=== PATIENT | female | born 1985 | race Caucasian/White ===

== ENCOUNTER 2016-12-20 03:45 | Emergency (ER) | payer OTHER ==
[~2016-12-20] VITALS: Ht 167.6 cm; Wt 53.0 kg
[~2016-12-20 03:45] MED LIST: ACYC400T PO; HYDR2TAB2 PO; IBUP-1427 PO; SERT50TA PO; SULF800T23 PO; SYMIN160 INH; VNTHFA/IN INH
[2016-12-20 03:47] VITALS: TEMP 36.8; Ht 167.6 cm; Wt 53.0 kg
--- NOTE | 2016-12-20 04:17 | EMERGENCY ROOM VISIT NOTE ---
History Report prepared by Humza: Betsy Guevara Under the Supervision of: Dr. Maria Elena Cuello D.O. First contact with patient: 03:51 Chief Complaint: CHEST PAIN Stated Complaint: CHEST PAIN,HARD BREATHING History of Present Illness The patient is a 31 year old female who presents to the Emergency Room with complaints of persistent chest pain for the past 3 weeks. She reports she has seen [facility], [facility] and her PCP's office for her symptoms, but no known etiology has been found. She rates her pain as a 10/10 in severity. Palpation worsens her discomfort and nothing relieves her pain. Dilaudid and Valium have provided minimal relief. She denies any nausea or vomiting. She denies any alcohol or drug use. She denies any recent strain or injuries. Her last menstrual period was 4 years ago as she has undergone a total hysterectomy. The patient admits to some shortness of breath, but notes she is a current smoker. In the past 2 days, she has taken Tylenol and Relafen, with minor relief. 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 A total of 10 systems reviewed and were otherwise negative. Past Medical & Surgical Medical Problems: (1) Genital herpes Social History Smoking Status: Current Every Day Smoker Alcohol Use: occasionally Drug Use: none Marital Status: Housing Status: lives with family Occupation Status: unemployed Current/Historical Medications Scheduled Acyclovir (Acyclovir), 400 MG PO BID Estrogens, Conjugated (Premarin), 1.25 MG PO DAILY Mirtazapine (Remeron), 30 MG PO HS Nabumetone (Relafen), 500 MG PO BID Scheduled PRN Lorazepam (Ativan), 0.5 MG PO Q8 PRN for Anxiety Allergies Coded Allergies: Amoxicillin (Verified Allergy, Unknown, UNKNOWN, 12/20/16) Citalopram (Verified Allergy, Unknown, UNKNOWN, 12/20/16) Clavulanic Acid (Verified Allergy, Unknown, UNKNOWN, 12/20/16) Physical Exam Vital Signs Date Time Temp Pulse Resp B/P (MAP) Pulse Ox O2 Delivery O2 Flow Rate FiO2 12/20/16 06:00 54 16 91/60 99 Room Air 12/20/16 05:24 59 24 101/59 94 Room Air 12/20/16 04:15 97 Room Air 12/20/16 04:02 69 12/20/16 03:47 36.8 71 18 107/71 97 Room Air Physical Exam HEENT: Head - normocephalic and atraumatic Pupils are equal, round, and reactive to light. Extraocular eye muscles are intact, and sclera are anicteric. Nose - moist nasal mucosa without discharge. Mouth - moist buccal mucosa. Oropharynx is nonerythematous and there is no tonsillar exudate or edema noted. Neck: Supple; no JVD, nuchal rigidity, cervical lymphadenopathy. Heart: Regular rate and rhythm. There is a normal S1 and S2 with no murmurs, clicks, or gallops appreciated. Chest: Pain is reproducible with palpation over left anterior chest wall. Lungs: Clear to auscultation bilaterally with no wheezes, rales, or rhonchi. Abdomen: Soft, completely nontender, nondistended, with good bowel sounds. There are no palpable pulsatile masses or hepatosplenomegaly. There is no guarding, rigidity, or rebound noted. Extremities: No evidence of cyanosis, clubbing, or edema. There are easily palpable peripheral pulses. Skin: warm and dry with good turgor and no rashes. Medical Decision & Procedures ER Provider Diagnostic Interpretation: Radiology results as stated below per my review and my interpretation: CHEST X-RAY Chest X-Ray shows a narrow mediastinum, no pulmonary infiltrates and no pneumothorax. Laboratory Results 12/20/16 03:50 Red Blood Count 4.59, Mean Corpuscular Volume 91.9, Mean Corpuscular Hemoglobin 30.7, Mean Corpuscular Hemoglobin Concent 33.4, Mean Platelet Volume 11.2, Neutrophils (%) (Auto) 55.0, Lymphocytes (%) (Auto) 37.0, Monocytes (%) (Auto) 6.1, Eosinophils (%) (Auto) 1.6, Basophils (%) (Auto) 0.2, Neutrophils # (Auto) 5.04, Lymphocytes # (Auto) 3.39, Monocytes # (Auto) 0.56, Eosinophils # (Auto) 0.15, Basophils # (Auto) 0.02 12/20/16 03:50 Test 12/20/16 03:50 White Blood Count 9.17 K/uL (4.8-10.8) Red Blood Count 4.59 M/uL (4.2-5.4) Hemoglobin 14.1 g/dL (12.0-16.0) Hematocrit 42.2 % (37-47) Mean Corpuscular Volume 91.9 fL (80-100) Mean Corpuscular Hemoglobin 30.7 pg (25-34) Mean Corpuscular Hemoglobin Concent 33.4 g/dl (32-36) Platelet Count 209 K/uL (130-400) Mean Platelet Volume 11.2 fL (7.4-10.4) Neutrophils (%) (Auto) 55.0 % Lymphocytes (%) (Auto) 37.0 % Monocytes (%) (Auto) 6.1 % Eosinophils (%) (Auto) 1.6 % Basophils (%) (Auto) 0.2 % Neutrophils # (Auto) 5.04 K/uL (1.4-6.5) Lymphocytes # (Auto) 3.39 K/uL (1.2-3.4) Monocytes # (Auto) 0.56 K/uL (0.11-0.59) Eosinophils # (Auto) 0.15 K/uL (0-0.5) Basophils # (Auto) 0.02 K/uL (0-0.2) RDW Standard Deviation 43.2 fL (36.4-46.3) RDW Coefficient of Variation 12.9 % (11.5-14.5) Immature Granulocyte % (Auto) 0.1 % Immature Granulocyte # (Auto) 0.01 K/uL (0.00-0.02) Anion Gap 4.0 mmol/L (3-11) Est Creatinine Clear Calc Drug Dose 100.9 ml/min Estimated GFR () 134.8 Estimated GFR (Non- 116.3 BUN/Creatinine Ratio 22.0 (10-20) Calcium Level 9.2 mg/dl (8.5-10.1) Total Bilirubin 0.3 mg/dl (0.2-1) Aspartate Amino Transf (AST/SGOT) 13 U/L (15-37) Alanine Aminotransferase (ALT/SGPT) 19 U/L (12-78) Alkaline Phosphatase 66 U/L (45-117) Troponin I < 0.015 ng/ml (0-0.045) Total Protein 6.8 gm/dl (6.4-8.2) Albumin 3.7 gm/dl (3.4-5.0) Globulin 3.1 gm/dl (2.5-4.0) Albumin/Globulin Ratio 1.2 (0.9-2) Laboratory results per my review. Medications Administered Medications (Trade) Dose Ordered Sig/Malika Route Start Time Stop Time Status Last Admin Dose Admin Ketorolac Tromethamine (Toradol Inj) 30 mg NOW STAT IV 12/20/16 04:23 12/20/16 04:25 DC 12/20/16 04:35 30 MG Diazepam (Valium Inj) 2.5 mg NOW STAT IV 12/20/16 05:19 12/20/16 05:20 DC 12/20/16 05:22 2.5 MG Procedure Toradol IV, Valium IV. ECG Indication: chest pain Rate (beats per minute): 63 Rhythm: normal sinus (normal sinus rhythm) Findings: no acute ischemic change, no ectopy ED Course 0404: Past medical records reviewed. The patient was evaluated in room A2. A complete history and physical exam was performed. An IV lock was initiated and labs are drawn as above. A twelve-lead EKG was obtained as described above. 0423: Toradol 30 mg IV. A portal chest x-ray was obtained as described above. 0515: I reevaluated the patient. She has had no relief of pain. She states when she was seen at [facility], she got Valium which helped for a little bit 0519: Valium 2.5 mg IV. 0540: I reviewed the patients records from ED visits to [facility] and the [facility]. She was seen at [facility] on December 02 for sudden onset chest pain. She had a normal EKG at that time and was diagnosed with chest wall pain. She also had a CT chest during that visit with no evidence of PE or aortic dissection. She was then seen at [facility] on December 05. 0600: I reevaluated the patient. She is feeling much better. Her pain is down to a 5/10 from a 10/10. I discussed her results and discharge instructions and she verbalized complete understanding and agreement. Medical Decision I attest that I have personally reviewed the patient's current medication list. Patient was found to have a low blood pressure on screening, but this is normal for her and does not require follow-up. The patient is a 31 year old female who presents to the ED with chest pain. Differential diagnosis includes: costochondritis, shingles, GERD, pleurisy and cardiac ischemia. Lab results show no leukocytosis, stable H&H, normal renal function, normal LFT' s, normal Glucose, negative Troponin. This is a 31-year-old male patient presents to the emergency department with left-sided chest pain that started approximately 3 weeks ago. She was seen by a PCP, [facility], and [facility]. She had multiple studies done over the past couple weeks which were all negative. The patient is currently on Premarin and does smoke. I was slightly concerned for PE. She has a normal O2 saturation and the pain was easily reproducible with palpation to the left anterior chest wall. She had a negative CT scan at [facility]. The patient has significant relief of her discomfort after having the IV Valium. I've encouraged patient to continue to use Relafen and avoid strenuous activity. [place] Drug Monitoring Program Search Results: patient reviewed within database, no issues identified (The patient received 8 tablets of [place] in October 2016, no issues identifiied) Impression Primary Impression: Left-sided chest wall pain Scribe Attestation The scribe's documentation has been prepared under my direction and personally reviewed by me in its entirety. I confirm that the note above accurately reflects all work, treatment, procedures, and medical decision making performed by me. Departure Information Dispostion Home / Self-Care Referrals No Doctor, Assigned (PCP) Patient Instructions Chest Pain - [facility], ED Chest Pain NonCardiac, My [facility] Additional Instructions Rest. Limit strenuous activity. Follow up closely with Dr. Estrada for pain management Continue Relafen for pain
[2016-12-20] MEDS ORDERED: KETOROLAC TROMETHAMINE 30 MG/ML VIAL IV STA (04:23)
[2016-12-20 04:34] LABS: BASO % 0.2 %; BASO ABS # 0.02 K/uL (0-0.2); COMPLETE YES; EOS % 1.6 %; HEMATOCRIT 42.2 % (37-47); IG% 0.1 %; LYMPH ABS # 3.39 K/uL (1.2-3.4); MEAN CELL VOLUME 91.9 fL (80-100); MEAN CORPUSCULAR HEMOGLOBIN 30.7 pg (25-34); MEAN CORPUSCULAR HGB CONC 33.4 g/dl (32-36); MEAN PLATELET VOLUME 11.2 fL (7.4-10.4); MONO % 6.1 %; PLATELET COUNT 209 K/uL (130-400); RED BLOOD COUNT 4.59 M/uL (4.2-5.4); WHITE BLOOD COUNT 9.17 K/uL (4.8-10.8)
[2016-12-20 04:43] LABS: ALT/SGPT 19 U/L (12-78); AST/SGOT 13 U/L (15-37); BLOOD UREA NITROGEN 15 mg/dl (7-18); CALCIUM 9.2 mg/dl (8.5-10.1); CARBON DIOXIDE 27 mmol/L (21-32); CHLORIDE 110 mmol/L (98-107); CREATININE 0.67 mg/dl (0.60-1.20); GLUCOSE 87 mg/dl (70-99); POTASSIUM 3.8 mmol/L (3.5-5.1); SODIUM 141 mmol/L (136-145)
[2016-12-20 04:48] LABS: ALB/GLOB RATIO 1.2 (0.9-2); ALKALINE PHOSPHATASE 66 U/L (45-117)
[2016-12-20] MEDS ORDERED: DIAZEPAM INJ 5 MG/ML 2 ML CARP IV STA (05:19)
[2016-12-20] MEDS ORDERED: ESTR1.252 PO (05:40)
[2016-12-20] MEDS ORDERED: LORA-741 PO (05:40)
[2016-12-20] MEDS ORDERED: ACYC400T PO (05:40)
[2016-12-20] MEDS ORDERED: NABU500T3 PO (05:40)
[2016-12-20] MEDS ORDERED: MIRT30TA3 PO (05:40)
[2016-12-20 06:00] VITALS: BP 91/60; PULSE 54; O2SAT 99
--- NOTE | 2016-12-20 08:48 | DIAGNOSTIC IMAGING REPORT ---
SINGLE VIEW CHEST CLINICAL HISTORY: Dyspnea. Left-sided chest wall pain. FINDINGS: An AP, portable, upright chest radiograph is obtained. No prior studies are available for comparison at the time of dictation. The examination is degraded by portable technique and patient rotation. The cardiomediastinal silhouette is unremarkable. The lungs appear hyperinflated, likely due to good inspiratory result. The lungs and pleural spaces are clear. No pneumothorax is seen. The bony thorax is grossly intact. IMPRESSION: No active disease in the chest. Electronically signed by: Andry Hurtado M.D. 12/20/2016 8:47 AM Dictated Date/Time: 12/20/2016 8:46 AM
== END 2016-12-20 06:07 | disposition home or self-care (01) ==
LOC: MERGE 03:47 → C.EDB 03:47 → C.EDA 06:07
DX: R07.89 Other chest pain (principal); F17.210 Nicotine dependence, cigarettes, uncomplicated; Z79.899 Other long term (current) drug therapy